=== PATIENT | female | born 1990 ===

== ENCOUNTER 2019-06-20 07:18 | Inpatient (IN) | payer OTHER ==
[~2019-06-20] VITALS: Ht 162.6 cm; Wt 71.7 kg
[2019-06-20] MEDS ORDERED: PRENATAL + DHA1 EAC1 PO (09:25)
[2019-06-20] MEDS ORDERED: OCUVITE LUTEIN1 EAC2 PO (09:34)
== END 2019-06-22 16:01 | disposition home or self-care (01) | DRG 806 ==
LOC: OB/GYN 07:18 → LDR 07:18 → OB/GYN 17:43
PROVIDERS: ADMIT Obstetrics & Gynecology
PROC: 4A1HXCZ Monitoring of Products of Conception, Cardiac Rate, External Approach (ICD-10-PCS; principal; 2019-06-20)
PROC: 10E0XZZ Delivery of Products of Conception, External Approach (ICD-10-PCS; 2019-06-20)
PROC: 0KQM0ZZ Repair Perineum Muscle, Open Approach (ICD-10-PCS; 2019-06-20)
PROC: 3E0P7VZ Introduction of Hormone into Female Reproductive, Via Natural or Artificial Opening (ICD-10-PCS; 2019-06-20)
DX: O48.0 Post-term pregnancy (principal); O98.82 Other maternal infectious and parasitic diseases complicating childbirth; Z37.0 Single live birth; O70.1 Second degree perineal laceration during delivery; Z3A.40 40 weeks gestation of pregnancy; B95.1 Streptococcus, group B, as the cause of diseases classified elsewhere

== ENCOUNTER 2021-10-13 10:35 | Emergency (ER) | payer OTHER ==
[~2021-10-13] VITALS: Ht 160 cm; Wt 55.3 kg
[~2021-10-13 10:35] MED LIST: OCUVITE LUTEIN1 EAC2 PO; PRENATAL + DHA1 EAC1 PO
[2021-10-13] MEDS ORDERED: VITAMIN B-COMP1 EAC2 PO (10:51)
[2021-10-13] MEDS ORDERED: DHA100 MG PO (10:52)
== END 2021-10-13 15:34 | disposition home or self-care (01) ==
LOC: ER 10:35
DX: O20.9 Hemorrhage in early pregnancy, unspecified (principal); Z3A.10 10 weeks gestation of pregnancy